=== PATIENT | male | born 1970 | race Native Hawaiian/Other Pacific Islander ===

== ENCOUNTER 2022-05-23 16:24 | Emergency (ER) | payer BC, SELFPAY ==
[2022-05-23 16:28] VITALS: BP 130/71; PULSE 95; RESP 16; TEMP 36.9; O2SAT 97; BMI 33.9
[2022-05-23] MEDS: diphenhydrAMINE 50 MG/ML VIAL IV (16:50)
[2022-05-23] MEDS: FAMOTIDINE 20 MG/2 ML VIAL 40 MG IV (16:52)
[2022-05-23] MEDS: EPINEPHrine 1 MG/ML 0.3 MG IM (16:56)
[2022-05-23] MEDS: methylPREDNISolone 125 MG/2 ML VIAL IV (16:59)
[2022-05-23 17:35] VITALS: BP 135/85; PULSE 61; RESP 12; O2SAT 96
[2022-05-23 19:06] VITALS: BP 126/76; PULSE 66; O2SAT 97
--- NOTE | 2022-05-23 19:06 | ED_ITS ---
HPI - Allergic Reaction <Silvia Acuña PA-C - Last Filed: 05/23/22 19:25> General Chief complaint: Allergic Reaction Stated complaint: Full body rash, facial/hand swelling Time Seen by Provider: 05/23/22 16:39 Source: patient Mode of arrival: Ambulatory History of Present Illness HPI narrative: 52-year-old male with no reported past medical history presents to the ED with 3 days of allergic symptoms. Patient states he was exposed to some fiberglass which he suspects might have triggered his symptoms. Patient has no history of prior allergic reactions. Patient is not allergic to any medications either. Patient denies using any new cosmetics, has not eaten any new foods. Patient endorses all-over rash on his torso, armpits, ears, lips. Patient states that the rash spread to his lips and ears since this morning. Patient states his lips are swollen and his skin feels swollen in his hands and wrists. Patient denies trouble breathing, tongue swelling, throat swelling. Patient denies nausea, vomiting. Patient denies history of asthma, COPD, emphysema. Related Data Previous Rx's Medication Instructions Recorded levofloxacin 750 mg tablet 750 mg PO QDAY #6 tabs 08/30/15 (Levaquin) epinephrine 0.3 mg/0.3 mL 0.3 mg (0.3 mL) IM Q5-15M PRN 05/23/22 injection, auto-injector (EpiPen anaphylaxis #2 ea 2-Sylvester) prednisone 50 mg tablet 50 mg PO DAILY #5 tabs 05/23/22 Allergies Allergy/AdvReac Type Severity Reaction Status Date / Time No Known Drug Allergies Allergy Unverified 12/09/21 14:15 Review of Systems <Silvia Acuña PA-C - Last Filed: 05/23/22 19:25> Review of Systems ROS Unobtainable: All systems reviewed & are unremarkable except as noted in HPI and below Constitutional Constitutional: Denies chills, Denies fatigue, Denies fever(s), Denies frequent falls, Denies lethargy and Denies weakness Eyes Eyes: Denies change in vision, Denies eye discharge, Denies irritation and Denies loss of vision ENT Ears, Nose, Mouth, and Throat: Denies change in voice, Denies dizziness, Reports lip swelling, Denies neck pain, Denies sore throat and Denies throat swelling Comments: Ears swelling, erythema, rash Cardiovascular Cardiovascular: Denies chest pain, Denies irregular heart rhythm, Denies lightheadedness, Denies palpitations, Denies dyspnea, Denies dyspnea on exertion and Denies orthopnea Respiratory Respiratory: Denies cough, Denies dyspnea, Denies dyspnea on exertion and Denies wheezing Gastrointestinal Gastrointestinal: Denies abdominal pain, Denies change in bowel habits, Denies diarrhea, Denies nausea and Denies vomiting Genitourinary Genitourinary: Denies hematuria, Denies flank pain, Denies urinary incontinence and Denies urinary urgency Musculoskeletal Musculoskeletal: Denies back pain, Denies muscle weakness, Denies neck pain, Denies numbness and Denies tingling Integumentary/Breasts Skin/Breast: Denies pruritus, Denies erythema, Reports rash and Denies wounds Neurologic Neurologic: Denies behavioral changes, Denies confusion, Denies dizziness, Denies frequent falls, Denies loss of vision, Denies numbness, Denies tingling and Denies weakness Psychiatric Psychiatric: Denies anxiety, Denies behavioral changes, Denies confusion, Denies depression, Denies homicidal ideation and Denies suicidal ideation Endocrine Endocrine: Denies fatigue, Denies flushing and Denies palpitations Hematologic/Lymphatic Hematologic/Lymphatic: Denies easy bruising Allergic/Immunologic Allergic/Immunologic: Denies urticaria, Reports lip swelling, Denies throat swelling and Denies wheezing Patient History <Silvia Acuña PA-C - Last Filed: 05/23/22 19:25> Social History Smoking Status: Current every day smoker Smoking Status: Current every day smoker tobacco type: cigarettes alcohol intake frequency: holidays/special occasions only Substance Use Type: does not use Exam <Silvia Acuña PA-C - Last Filed: 05/23/22 19:25> Narrative Exam Narrative: Const General:?cooperative, healthy appearing and comfortable [facility] Head:?normal to inspection Ears:?hearing grossly normal bilaterally Nose:?external nose normal Face and sinus:?normal facial exam and sinuses nontender Mouth:? Lip swelling, erythema. No tongue swelling. No throat swelling. airway is patent. Throat:?posterior oropharynx normal Eyes General:?appearance normal, both eyes and all related structures Neck Neck:?normal visual inspection and no lymphadenopathy noted Resp Effort & Inspection:?normal respiratory effort Auscultation:? Mild diffuse wheezes Cardio Rate:?regular rate Rhythm:?regular rhythm Integumentary Hives visualized on trunk, ears, wrists. Neuro General:?patient alert, patient awake and patient oriented x3 Initial Vital Signs Initial Vital Signs: Vital Signs Temperature 98.5 F 05/23/22 16:28 Pulse Rate 95 H 05/23/22 16:28 Respiratory Rate 16 05/23/22 16:28 Blood Pressure 130/71 05/23/22 16:28 Pulse Oximetry 97 05/23/22 16:28 Oxygen Delivery Method Room Air 05/23/22 16:28 <Jm Dick DO - Last Filed: 05/26/22 18:02> Initial Vital Signs Initial Vital Signs: Vital Signs Temperature 98.5 F 05/23/22 16:28 Pulse Rate 95 H 05/23/22 16:28 Respiratory Rate 16 05/23/22 16:28 Blood Pressure 130/71 05/23/22 16:28 Pulse Oximetry 97 05/23/22 16:28 Oxygen Delivery Method Room Air 05/23/22 16:28 Course <Silvia Acuña PA-C - Last Filed: 05/23/22 19:25> Orders Ordered: Discontinued Medications Diphenhydramine HCl (Diphenhydramine 50 Mg/Ml Vial) 50 mg IV NOW ONE Stop: 05/23/22 16:41 Last Admin: 05/23/22 16:50 Dose: 50 mg Documented By: SPF Epinephrine HCl (Epinephrine 1 Mg/Ml) 0.3 mg IM NOW ONE Stop: 05/23/22 16:40 Last Admin: 05/23/22 16:56 Dose: 0.3 mg Documented By: SPF Famotidine (Famotidine 20 Mg/2 Ml Vial) 40 mg IV NOW GUSTAVO Last Admin: 05/23/22 16:52 Dose: 40 mg Documented By: SPF Methylprednisolone (Methylprednisolone 125 Mg/2 Ml Vial) 125 mg IV NOW ONE Stop: 05/23/22 16:41 Last Admin: 05/23/22 16:59 Dose: 125 mg Documented By: SPF Vital Signs Vital signs: Vital Signs - 8 hr 05/23/22 16:28 05/23/22 17:35 Temperature 98.5 F Pulse Rate 95 H 61 Respiratory Rate 16 12 Blood Pressure 130/71 135/85 Pulse Oximetry 97 96 Oxygen Delivery Method Room Air Room Air <Jm Dick DO - Last Filed: 05/26/22 18:02> Orders Ordered: Discontinued Medications Diphenhydramine HCl (Diphenhydramine 50 Mg/Ml Vial) 50 mg IV NOW ONE Stop: 05/23/22 16:41 Last Admin: 05/23/22 16:50 Dose: 50 mg Documented By: SPF Epinephrine HCl (Epinephrine 1 Mg/Ml) 0.3 mg IM NOW ONE Stop: 05/23/22 16:40 Last Admin: 05/23/22 16:56 Dose: 0.3 mg Documented By: SPF Famotidine (Famotidine 20 Mg/2 Ml Vial) 40 mg IV NOW GUSTAVO Last Admin: 05/23/22 16:52 Dose: 40 mg Documented By: SPF Methylprednisolone (Methylprednisolone 125 Mg/2 Ml Vial) 125 mg IV NOW ONE Stop: 05/23/22 16:41 Last Admin: 05/23/22 16:59 Dose: 125 mg Documented By: SPF Vital Signs Vital signs: Vital Signs - 8 hr 05/23/22 16:28 05/23/22 17:35 Temperature 98.5 F Pulse Rate 95 H 61 Respiratory Rate 16 12 Blood Pressure 130/71 135/85 Pulse Oximetry 97 96 Oxygen Delivery Method Room Air Room Air MDM - Allergic Reaction <Silvia Acuña PA-C - Last Filed: 05/23/22 19:25> MDM Narrative Medical decision making narrative: 52-year-old male with no reported past medical history presents to the ED with 3 days of allergic symptoms. Physical exam consistent with anaphylactic reaction, given angioedema, generalized hives, mild generalized wheezing. Patient administered epinephrine, Benadryl, Pepcid AC, methylprednisolone. Patient's symptoms significantly improved with the treatment. Patient was observed in the ED for 2 hours with no signs of biphasic reactions or worsening symptoms. Discussed the dangers of anaphylaxis and importance of carrying the EpiPen with him at all times with low threshold to use it if he has any anaphylactic symptoms. Discharge patient home with prescription for prednisone, EpiPen. Recommend continued use of Benadryl, Pepcid AC in addition to the prednisone. ED return precautions discussed with patient. Patient verbalized understanding. Medical records reviewed: Yes Discharge Plan Departure Patient Disposition: Home Clinical Impression: Allergic reaction Instructions: DI for Anaphylaxis, DI for Adverse Drug Reaction -- Allergic Activity Restrictions/Additional Instructions: You were evaluated in the ED today for an allergic reaction. You had some wheezing and lip swelling along with a more extensive skin rash. You were therefore treated for an anaphylactic reaction with epinephrine, steroids, Benadryl, Pepcid AC. An anaphylactic reaction can be life-threatening since it can impact the airway. You are being prescribed an EpiPen to carry at all times with you with low threshold for use if you experience an anaphylactic reaction. You may continue to take Benadryl, Pepcid AC, prednisone at home for the next few days. Please follow-up with your PCP and possible merchandise coordinator for further evaluation. Return to the ED immediately by calling 911 if you have a repeat anaphylactic reaction again. Prescriptions: New epinephrine [EpiPen 2-Sylvester] 0.3 mg/0.3 mL auto-injector 0.3 mg IM Q5-15M PRN (Reason: anaphylaxis) Qty: 2 0RF Rx Instructions: do not exceed 3 doses per episode prednisone 50 mg tablet 50 mg PO DAILY Qty: 5 0RF No Action levofloxacin [Levaquin] 750 MG tablet 750 mg PO QDAY Qty: 6 0RF Referrals: Miscellaneous,Doctor, MD [Primary Care Provider] - Stand Alone Forms: Patient Portal/API <Jm Dick DO - Last Filed: 05/26/22 18:02> Cosign ED Attending Cosignature Attestation: Dr Dick Co-Sign Statement: I was available for consultation during this patient's emergency department visit. This chart is signed by myself for administrative purposes only. I did not have direct contact with this patient during this visit. They were seen independently by the APC.
== END 2022-05-23 19:15 | disposition home or self-care (01) ==
PROVIDERS: Emergency Provider Student in an Organized Health Care Education/Training Program
DX: T78.40XA Allergy, unspecified, initial encounter (principal); X58.XXXA Exposure to other specified factors, initial encounter
CPT/HCPCS: 96372; 96374; 96375; 99284; J0171; J1200; J2930

== ENCOUNTER → 2024-04-09 16:46 | Outpatient (CLI) | payer BC, SELFPAY ==
--- NOTE | 2024-04-09 | DI.RAD.S_ITS ---
PROCEDURE: XR KNEE RT 3V INDICATIONS: knee pain TECHNIQUE: 3 views of the knee were acquired. COMPARISON: None. FINDINGS: Bones: There are no osseous abnormalities. Joints: Severe right medial tibial femoral and patellofemoral degeneration noted. Moderate left tibial femoral degeneration also seen. Small right effusion noted. Soft tissues: There is a small metallic foreign body, likely a needle , in the lateral subcutaneous soft tissues overlying the proximal tibia IMPRESSION: Severe right patellofemoral and medial tibial femoral degeneration. Moderate left tibiofemoral degeneration Small foreign body in the lateral subcutaneous soft tissues overlying the proximal tibia. Consider ultrasound for precise localization if removal is considered Dictated by: Angel Bond M.D. on 04/10/2024 at 11:53 Approved by: Angel Bond M.D. on 04/10/2024 at 11:56
== END ==
LOC: RAD 16:53
PROVIDERS: PCP Registered Nurse; Referring Provider Family Medicine Sports Medicine; Visit Provider Family Medicine Sports Medicine
DX: S83.511A Sprain of anterior cruciate ligament of right knee, initial encounter (principal); M17.11 Unilateral primary osteoarthritis, right knee; M25.361 Other instability, right knee; M25.561 Pain in right knee; M79.5 Residual foreign body in soft tissue; Z98.890 Other specified postprocedural states
CPT/HCPCS: 73562

== ENCOUNTER → 2024-06-20 09:04 | Outpatient (CLI) | payer BC, SELFPAY ==
--- NOTE | 2024-06-20 09:04 | DI.CT.S_ITS ---
PROCEDURE: CT KNEE RIGHT WITHOUT CON INDICATIONS: FB IN RT KNEE TECHNIQUE: Noncontrast 1-1.5 mm axial sections acquired from the mid-patella to the proximal tibia, with coronal and sagittal reformats. COMPARISON: [facility], CR, XR KNEE RT 3V, 04/09/2024, 16:53. FINDINGS: Image quality: Diagnostic Bones: Severe arthrosis of the knee, with complete joint space loss of the medial compartment. There are significant osteophytes. Moderate involvement also seen of the patellofemoral compartment. Patellar enthesopathy. No acute displaced fracture or dislocation. Lateral patellar tilt. Soft tissues: [id number]-[id number] knee joint effusion. Approximately 2 cm metallic foreign body is seen just under the skin, lateral to the tibial tuberosity. This is extra-articular Likely vascular calcification is seen adjacent to the fibular proximal shaft. Another punctate possible foreign body is seen in the in the lateral soft tissues adjacent to the distal femoral shaft (2/30). IMPRESSION: 2 cm linear metallic foreign body is seen just under the skin, lateral to the tibial tuberosity, this is extra-articular. Another possible punctate foreign body is seen in the lateral soft tissues adjacent to the distal femoral shaft, also extra-articular. Severe knee arthrosis. Xtem-ey-irbbdtle joint effusion. Patellar enthesopathy. Lateral patellar tilt. Dictated by: Akira Vang M.D. on 06/21/2024 at 9:00 Approved by: Akira Vang M.D. on 06/21/2024 at 9:05
== END ==
LOC: CT 09:04
PROVIDERS: PCP Registered Nurse; Referring Provider Surgery; Visit Provider Surgery
DX: S80.251A Superficial foreign body, right knee, initial encounter (principal); M17.11 Unilateral primary osteoarthritis, right knee; X58.XXXA Exposure to other specified factors, initial encounter; M25.461 Effusion, right knee
CPT/HCPCS: 73700